=== PATIENT | female | born 1990 ===

== ENCOUNTER 2020-11-13 09:15 | Outpatient (RCR) | payer OTHER, SELFPAY ==
[2020-11-04 12:22] VITALS: BMI 24.7
--- NOTE | 2020-11-04 12:49 | PC.ADMIT ---
Patient is a 29 year old transgendered male who self referred to the [facility] d/t increased depression with passive Si, no plan or intent, and increased anxiety with panic attacks. 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 Patient feels uncertain regarding his current employment and career d/t the pandemic and is worried about his finances being stable as he had just purchased a house before he was laid off from [facility] [employer] [facility] [employer]. Patient is currently taking a DARNELL from work d/t symptoms. Patient is alert and oriented x4. Presents with depressed mood and affect. Denied SI or thoughts to harm himself. Gave verbal permission to email him a copy of his safety plan. Patient has the crisis number if feeling unsafe. Medication reconciled with patient and patient's pharmacy.
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
--- NOTE | 2020-11-04 15:09 | PC.NURSE ---
Case opened in treatment team
--- NOTE | 2020-11-06 13:29 | HO.PHPPROGNO ---
Subjective Subjective Date of Service: 11/06/20 Reason For Visit: Depression, Anxiety, Mood disorder as teenager Interim History: The patient has done her research regarding MDD and he has realized that he has a seasonal pattern. He agreed to try Remeron Attending Groups: Yes Review of Systems Review of Systems Yes all other systems are reviewed and are negative Mental Status Exam Mental Status Exam Patient Appearance: Well Grooomed Patient Orientation: Person, Place, Time and Situation Level of Consciousness: Awake Patient Behavior: Appropriate Mood Description: Calm Affect Description: Constricted Patient Cognition Impaired: No Ability to Follow Directions: Good Speech Pattern: Clear Memory Description: Intact Hallucinations: None Delusions: Not Present Thought Process: Goal Oriented Thought Content: positive for Intact Judgement: Fair Diagnostics Vital Signs (24Hr): Body Mass Index 24.7 Assessment & Plan Assessment & Plan (1) Major depressive disorder with current active episode: Status: Acute Code(s): F32.9 - Major depressive disorder, single episode, unspecified Assessment and Plan: The patient is a young male transgender male with a previous history of depression that relapsed last year on depressive symptoms with no psychosis or suicidality. He agreed to try Remeron at . Plan: Remeron 15 mg po qhs FMLA paperwork done Certification I certify that partial hospital treatment is medically necessary due to the symptoms and problems resulting from the patient's mental illness and the failure to treat the patient at the partial hospital level of care would likely result in the patient requiring inpatient psychiatric care which could not be prevented at a less intensive level of care. Greater than 50% of the session was spent on counseling and/or coordination of care Discharge Plan Discharge Attending provider: Kodak Castaneda Primary Care Provider: Emily Chung Medications: New mirtazapine [Remeron] 15 mg tablet 15 mg PO BEDTIME Qty: 7 RF: 1 No Action cetirizine [Zyrtec] 10 mg Tablet 10 mg PO BEDTIME RF: 0 testosterone cypionate 200 mg/mL Kit 60 mg IM QWEEK RF: 0 Referrals: Emily Chung MD [Primary Care Provider] - 1 Week Telehealth Telehealth Location of provider rendering services: practice address Location of patient: address on file Patient Identification confirmed using: Name, : Yes Telehealth method: video Patient verbally consented to treatment: Yes Patient verbally consented to billing insurance company: Yes Patient informed of any privacy concerns related to visit: No Time spent with patient (mins): 15
--- NOTE | 2020-11-06 14:13 | PC.NURSE ---
I called and made referral for client to get a therapist and prescriber. Sara will call me back with appointments.
--- NOTE | 2020-11-13 14:21 | P.PNPSP_ITS ---
Subjective Subjective Date of Service: 11/13/20 Reason For Visit: Depression, Anxiety, Mood disorder as teenager Interim History: The patient has not started Remeron. This is his last appointment with [facility]. Medication Compliance: Yes Attending Groups: Yes Mental Status Exam Mental Status Exam Patient Appearance: Well Grooomed Patient Orientation: Person, Place, Time and Situation Level of Consciousness: Awake and Appropriate Patient Behavior: Appropriate Mood Description: Calm Affect Description: Appropriate Patient Cognition Impaired: No Ability to Follow Directions: Good Speech Pattern: Clear Memory Description: Intact Hallucinations: None Delusions: Not Present Thought Process: Goal Oriented Thought Content: positive for Intact Judgement: Fair Diagnostics Vital Signs (24Hr): Body Mass Index 24.7 Assessment & Plan Assessment & Plan (1) Major depressive disorder with current active episode: Status: Acute Code(s): F32.9 - Major depressive disorder, single episode, unspecified Assessment and Plan: The patient is an adult trangendered male with mood symptoms self-referred for depression. He was reluctant to start medications and he stated that he has benefit from the program. Plan: Continue treatment with outpatient providers Certification I certify that partial hospital treatment is medically necessary due to the symptoms and problems resulting from the patient's mental illness and the failure to treat the patient at the partial hospital level of care would likely result in the patient requiring inpatient psychiatric care which could not be prevented at a less intensive level of care. Greater than 50% of the session was spent on counseling and/or coordination of care Discharge Plan Discharge Attending provider: Kodak Castaneda Primary Care Provider: Emily Chung Additional Instructions: [facility] appointments Intake with Anamaria Robbins 11/15/20 2pm and Psych eval on 12/16/20 @9:40 am with Gail Tuttle [facility] with follow up on 01/15/21 Medications: New mirtazapine [Remeron] 15 mg tablet 15 mg PO BEDTIME Qty: 7 RF: 1 No Action cetirizine [Zyrtec] 10 mg Tablet 10 mg PO BEDTIME RF: 0 testosterone cypionate 200 mg/mL Kit 60 mg IM QWEEK RF: 0 Referrals: Emily Chung MD [Primary Care Provider] - 1 Week Stand Alone Forms: Patient Portal Discharge page Telehealth Telehealth Location of provider rendering services: practice address Location of patient: address on file Patient Identification confirmed using: Name, : Yes Telehealth method: video Patient verbally consented to treatment: Yes Patient verbally consented to billing insurance company: Yes Patient informed of any privacy concerns related to visit: No Time spent with patient (mins): 15
== END 2020-11-14 08:25 | disposition home or self-care (01) ==
LOC: HO.PHPA 09:15
PROVIDERS: PCP Family Medicine; Visit Provider Psychiatry & Neurology Psychiatry
DX: F32.9 Major depressive disorder, single episode, unspecified (principal); F64.0 Transsexualism; Z79.899 Other long term (current) drug therapy
CPT/HCPCS: 90791; 90853